=== PATIENT | female | born 1975 | race African-American/Black ===

== ENCOUNTER 2022-11-15 10:42 | Inpatient (IN) | payer OTHER ==
[2022-11-15 11:11] VITALS: BMI 24.0
[2022-11-15] MEDS ORDERED: guaiFENesin 200 MG/10 ML 10 ML UNIT-DOSE CUPS PO PRN (13:54)
[2022-11-15] MEDS ORDERED: LOPERAMIDE HCL 2 MG CAPSULE PO PRN (13:54)
[2022-11-15] MEDS ORDERED: IBUPROFEN 400 MG TABLET (FP) PO PRN (13:54)
[2022-11-15] MEDS ORDERED: MAGNESIUM HYDROX 2400MG/30ML ORAL SUSPENSION 30 ML CUP PO PRN (13:54)
[2022-11-15] MEDS ORDERED: P-EPHED 60MG/TRIPROLIDI 2.5MG TABLET PO PRN (13:54)
[2022-11-15] MEDS ORDERED: POLYETHYLENE GLYCOL (HEALTHYLAX) 3350 17 GM PACKET PO PRN (13:54)
[2022-11-15] MEDS ORDERED: BENZOCAINE/MENTHOL (CHLORASEPTIC ) LOZENGE MM PRN (13:54)
[2022-11-15] MEDS ORDERED: MAG HYDROX/AL HYDROX/SIMETH 30 ML UNIT-DOSE CUP PO PRN (13:54)
[2022-11-15] MEDS ORDERED: NICOTINE POLACRILEX 2 MG GUM ONE (15:15)
[2022-11-16] MEDS: NICOTINE 7 MG/24 HOURS TOPICAL PATCH TD SCH ×2 (04:45→10:51)
[2022-11-16] MEDS: THIAMINE HCL 100 MG TABLET (FP) PO SCH ×2 (04:46→21:51)
[2022-11-16] MEDS: MELATONIN 5 MG TABLETS PO SCH ×2 (04:46→21:51)
[2022-11-16] MEDS: PRENATAL VITAMINS W/ FOLIC ACID TABLET (FP) PO SCH ×2 (04:46→10:51)
[2022-11-16] MEDS: NICOTINE 10 MG CARTRIDGE (INHALER) IH PRN ×2 (06:51→22:17)
[2022-11-16 07:37] VITALS: RESP 18
[2022-11-16] MEDS ORDERED: COLLOIDAL OATMEAL 1 BAR EACH TP PRN (08:56)
[2022-11-16] MEDS ORDERED: LIDOCAINE HCL 5% TOP OINTMENT 50 GM TUBE TP ONE (09:07)
[2022-11-16 10:24] LABS: HEMATOCRIT 34.9 % (32.4-45.2); HEMOGLOBIN 11.2 GM/dL (10.7-15.3); MCH 26.3 pg (25.7-33.7); MCHC 32.1 g/dl (32.0-36.0); MEAN PLT VOLUME 9.6 fl (7.5-11.1); PLATELET COUNT 263 10^3/uL (134-434); RBC 4.26 M/mm3 (3.60-5.2); RDW 15.2 % (11.6-15.6); WHITE BLOOD COUNT 4.9 K/mm3 (4.0-10.0)
[2022-11-16] MEDS: hydrOXYzine PAMOATE 25 MG CAPSULE (FP) PO PRN (10:51)
[2022-11-16] MEDS: SELENIUM SULFIDE 2.5% LOTION 4 OZ. TP SCH (10:55)
[2022-11-16] MEDS: VITAMINS A AND D TOPICAL OINTMENT 60 GM TUBE TP SCH ×2 (11:09→17:52)
[2022-11-16 11:16] LABS: ALBUMIN 3.3 g/dl (3.4-5.0); BLOOD UREA NITROGEN 18.4 mg/dL (7-18)
[2022-11-16 11:17] LABS: CALCIUM 8.6 mg/dL (8.5-10.1)
[2022-11-16 11:19] LABS: CREATININE 0.6 mg/dL (0.55-1.3)
[2022-11-16 11:20] LABS: TOT PROT 6.2 g/dl (6.4-8.2)
[2022-11-16 11:23] LABS: BILIRUBIN,TOTAL 0.4 mg/dL (0.2-1)
[2022-11-16 11:36] LABS: SYPHILIS W/ RPR CONF NON-REACTIVE (NONREACTIVE)
[2022-11-16] MEDS: ACETAMINOPHEN 325 MG TABLET (FP) PO PRN (18:09)
[2022-11-16] MEDS: NICOTINE POLACRILEX 2 MG GUM BUC PRN (21:52)
[2022-11-17] MEDS: VITAMINS A AND D TOPICAL OINTMENT 60 GM TUBE TP SCH ×4 (00:40→17:11)
[2022-11-17] MEDS: hydrOXYzine PAMOATE 25 MG CAPSULE (FP) PO PRN ×3 (08:56→21:53)
[2022-11-17] MEDS: SELENIUM SULFIDE 2.5% LOTION 4 OZ. TP SCH (10:03)
[2022-11-17] MEDS: PRENATAL VITAMINS W/ FOLIC ACID TABLET (FP) PO SCH (10:03)
[2022-11-17] MEDS: NICOTINE 7 MG/24 HOURS TOPICAL PATCH TD SCH (10:03)
[2022-11-17] MEDS: NICOTINE POLACRILEX 2 MG GUM BUC PRN ×2 (10:05→17:11)
[2022-11-17] MEDS ORDERED: BACLOFEN 10 MG TABLET (FP) PO PRN (15:02)
[2022-11-17] MEDS: THIAMINE HCL 100 MG TABLET (FP) PO SCH (21:53)
[2022-11-17] MEDS: MELATONIN 5 MG TABLETS PO SCH (21:53)
[2022-11-18] MEDS: VITAMINS A AND D TOPICAL OINTMENT 60 GM TUBE TP SCH ×2 (00:22→06:42)
[2022-11-18] MEDS: ACETAMINOPHEN 325 MG TABLET (FP) PO PRN (07:23)
[2022-11-18 07:35] VITALS: BP 108/60; PULSE 63; TEMP 97.8
[2022-11-18] MEDS: NICOTINE 7 MG/24 HOURS TOPICAL PATCH TD SCH (09:24)
[2022-11-18] MEDS: PRENATAL VITAMINS W/ FOLIC ACID TABLET (FP) PO SCH (09:24)
[2022-11-18] MEDS: SELENIUM SULFIDE 2.5% LOTION 4 OZ. TP SCH (09:25)
[2022-11-18] MEDS: hydrOXYzine PAMOATE 25 MG CAPSULE (FP) PO PRN (09:26)
[2022-11-18] MEDS: NICOTINE POLACRILEX 2 MG GUM BUC PRN (09:27)
== END 2022-11-18 10:00 | disposition left against medical advice (07) | DRG 770 ==
LOC: YASAS 10:42 → Y5N 19:42
PROVIDERS: ADMIT Allergy & Immunology; ATTEND Allergy & Immunology
PROC: HZ42ZZZ Group Counseling for Substance Abuse Treatment, Cognitive-Behavioral (ICD-10-PCS; principal; 2022-11-15)
DX: F10.20 Alcohol dependence, uncomplicated (principal); F14.20 Cocaine dependence, uncomplicated; F17.210 Nicotine dependence, cigarettes, uncomplicated; F19.24 Other psychoactive substance dependence with psychoactive substance-induced mood disorder; F43.10 Post-traumatic stress disorder, unspecified; F41.9 Anxiety disorder, unspecified; G47.00 Insomnia, unspecified; M06.9 Rheumatoid arthritis, unspecified; Z91.410 Personal history of adult physical and sexual abuse; Z85.6 Personal history of leukemia; F91.8 Other conduct disorders; Z91.199 Patient's noncompliance with other medical treatment and regimen due to unspecified reason
CPT/HCPCS: 36415; 80053; 81025; 85027; 86780; 86803; C9803-CS; J0475; U0003; U0005

== ENCOUNTER 2023-12-19 22:51 | Emergency (ER) | payer OTHER ==
[2023-12-19 23:15] VITALS: BMI 58.6
[2023-12-20] MEDS ORDERED: ACETAMINOPHEN INJECTION 100 ML IVPB ONE (00:06)
[2023-12-20] MEDS: SODIUM CHLORIDE 0.9% 500 ML INFUS.BAG IV ONE ×2 (00:18→02:31)
[2023-12-20] MEDS: ACETAMINOPHEN 1000 MG/100 ML BAG IVPB ONE (00:18)
[2023-12-20 00:21] LABS: BASO % 0.8 % (0-2.0); EOS % 3.6 % (0-4.5); HEMATOCRIT 34.9 % (32.4-45.2); HEMOGLOBIN 11.6 GM/dL (10.7-15.3); LYMPH % 37.4 % (8-40); MCH 27.1 pg (25.7-33.7); MCHC 33.2 g/dl (32.0-36.0); MEAN CELL VOLUME 81.6 fl (80-96); MEAN PLT VOLUME 9.6 fl (7.5-11.1); MONO % 5.5 % (3.8-10.2); NEUT % 52.7 % (42.8-82.8); PLATELET COUNT 233 10^3/uL (134-434); RBC 4.28 M/mm3 (3.60-5.2); RDW 13.9 % (11.6-15.6); WHITE BLOOD COUNT 5.9 K/mm3 (4.0-10.0)
[2023-12-20 00:41] LABS: POTASSIUM 3.8 mmol/L (3.5-5.1)
[2023-12-20 00:44] LABS: ALBUMIN 3.2 g/dl (3.4-5.0); BLOOD UREA NITROGEN 17.1 mg/dL (7-18)
[2023-12-20 00:47] LABS: CREATININE 0.6 mg/dL (0.55-1.3)
[2023-12-20 00:48] LABS: BILIRUBIN,TOTAL 0.2 mg/dL (0.2-1); TOT PROT 6.3 g/dl (6.4-8.2)
[2023-12-20] MEDS ORDERED: FAMOTIDINE 10 MG/ML VIAL IVPB ONE (02:22)
[2023-12-20] MEDS: FAMOTIDINE 20 MG/50 ML IVPB 20 MG/50 ML MG IVPB ONE (02:32)
[2023-12-20 09:13] VITALS: BP 135/81; PULSE 64; RESP 17; TEMP 97.4
[2023-12-20] MEDS ORDERED: KETOROLAC TROMETHAMINE 15 MG/ML VIAL ONE (09:51)
[2023-12-20] MEDS: KETOROLAC TROMETHAMINE 15 MG/ML VIAL IVPUSH ONE (09:57)
== END 2023-12-20 15:00 | disposition home or self-care (01) ==
LOC: JER 22:51
PROC: 3E033GC Introduction of Other Therapeutic Substance into Peripheral Vein, Percutaneous Approach (ICD-10-PCS; principal; 2023-12-20)
PROC: 3E033NZ Introduction of Analgesics, Hypnotics, Sedatives into Peripheral Vein, Percutaneous Approach (ICD-10-PCS; 2023-12-20)
PROC: 3E0333Z Introduction of Anti-inflammatory into Peripheral Vein, Percutaneous Approach (ICD-10-PCS; 2023-12-20)
DX: F10.99 Alcohol use, unspecified with unspecified alcohol-induced disorder (principal); F14.99 Cocaine use, unspecified with unspecified cocaine-induced disorder; R52 Pain, unspecified; R10.84 Generalized abdominal pain; Z20.822 Contact with and (suspected) exposure to COVID-19; Y90.9 Presence of alcohol in blood, level not specified
CPT/HCPCS: 0241U-QW; 36415; 74177-TC; 80053; 83735; 84703; 85025; 99285-25; J0131; Q9967

== ENCOUNTER 2024-01-02 19:08 | Inpatient (IN) | payer OTHER ==
[2024-01-02 19:39] VITALS: BMI 23.0
[2024-01-02] MEDS ORDERED: guaiFENesin 600 MG TABLET.ER (FP) PO PRN (21:27)
[2024-01-02] MEDS ORDERED: MAGNESIUM HYDROX 2400MG/30ML ORAL SUSPENSION 30 ML CUP PO PRN (21:27)
[2024-01-02] MEDS ORDERED: LOPERAMIDE HCL 2 MG CAPSULE PO PRN (21:27)
[2024-01-02] MEDS ORDERED: DICYCLOMINE HCL 10 MG CAPSULE PO PRN (21:27)
[2024-01-02] MEDS ORDERED: IBUPROFEN 400 MG TABLET (FP) PO PRN (21:27)
[2024-01-02] MEDS ORDERED: ONDANSETRON *ODT* 4 MG TABLET SL PRN (21:27)
[2024-01-02] MEDS ORDERED: POLYETHYLENE GLYCOL (HEALTHYLAX) 3350 17 GM PACKET PO PRN (21:27)
[2024-01-02] MEDS ORDERED: BENZOCAINE/MENTHOL (CHLORASEPTIC ) LOZENGE MM PRN (21:27)
[2024-01-02] MEDS ORDERED: BISMUTH SUBSALICYLATE 524 MG/30 ML PO PRN (21:27)
[2024-01-02] MEDS ORDERED: P-EPHED 60MG/TRIPROLIDI 2.5MG TABLET PO PRN (21:27)
[2024-01-02] MEDS ORDERED: BENZONATATE 200 MG CAPSULE PO PRN (21:27)
[2024-01-02] MEDS ORDERED: MELATONIN 5 MG TABLETS ONE (22:11)
[2024-01-02] MEDS ORDERED: METHOCARBAMOL 500 MG TABLET ONE (22:11)
[2024-01-02] MEDS: MELATONIN 5 MG TABLETS PO SCH (22:13)
[2024-01-02] MEDS: THIAMINE HCL 100 MG TABLET (FP) PO SCH (22:13)
[2024-01-02] MEDS: METHOCARBAMOL 500 MG TABLET PO PRN (22:13)
[2024-01-03] MEDS: IBUPROFEN 600 MG TABLET (FP) PO PRN (00:25)
[2024-01-03] MEDS: MAG HYDROX/AL HYDROX/SIMETH 30 ML UNIT-DOSE CUP PO PRN (00:25)
[2024-01-03] MEDS ORDERED: diazePAM 5 MG TABLET PO PRN (08:52)
[2024-01-03] MEDS: diazePAM 5 MG TABLET PO SCH (10:14)
[2024-01-03] MEDS: PRENATAL VITAMINS W/ FOLIC ACID TABLET (FP) PO SCH (10:14)
[2024-01-03] MEDS: NICOTINE POLACRILEX 2 MG LOZENGE BC PRN (11:37)
[2024-01-03 12:10] LABS: HEMATOCRIT 34.8 % (32.4-45.2); HEMOGLOBIN 11.1 GM/dL (10.7-15.3); MCH 26.2 pg (25.7-33.7); MEAN PLT VOLUME 9.8 fl (7.5-11.1); PLATELET COUNT 239 10^3/uL (134-434); RBC 4.24 M/mm3 (3.60-5.2); RDW 13.6 % (11.6-15.6); WHITE BLOOD COUNT 4.9 K/mm3 (4.0-10.0)
[2024-01-03 13:22] LABS: POTASSIUM 4.1 mmol/L (3.5-5.1)
[2024-01-03 13:42] LABS: ALBUMIN 2.9 g/dl (3.4-5.0); BILIRUBIN,TOTAL 0.3 mg/dL (0.2-1); CALCIUM 8.1 mg/dL (8.5-10.1); TOT PROT 5.9 g/dl (6.4-8.2)
[2024-01-03 13:43] LABS: BLOOD UREA NITROGEN 23.4 mg/dL (7-18)
[2024-01-03 13:44] LABS: CREATININE 0.8 mg/dL (0.55-1.3)
[2024-01-03] MEDS: traZODone HCL 50 MG TABLET (FP) PO SCH (22:19)
[2024-01-03] MEDS: NICOTINE POLACRILEX 2 MG GUM BUC PRN (22:20)
[2024-01-04] MEDS: ARIPiprazole 5 MG TABLET PO SCH (10:44)
[2024-01-04] MEDS: ESCITALOPRAM OXALATE 10 MG TABLET PO SCH (10:44)
[2024-01-05] MEDS: diazePAM 5 MG TABLET PO SCH (05:51)
[2024-01-05] MEDS: hydrOXYzine PAMOATE 25 MG CAPSULE (FP) PO PRN (05:56)
[2024-01-06] MEDS: diazePAM 5 MG TABLET PO SCH (06:30)
[2024-01-06] MEDS: ACETAMINOPHEN 325 MG TABLET (FP) PO PRN (09:14)
[2024-01-07] MEDS: diazePAM 5 MG TABLET PO ONE (05:59)
[2024-01-07 06:11] VITALS: PULSE 76; RESP 16; TEMP 97.6
[2024-01-07 07:11] VITALS: BP 103/63
== END 2024-01-07 09:20 | disposition home or self-care (01) | DRG 774 ==
LOC: YASAS 19:08 → Y3N 22:07
PROVIDERS: ADMIT Allergy & Immunology; ATTEND Surgery
PROC: HZ2ZZZZ Detoxification Services for Substance Abuse Treatment (ICD-10-PCS; principal; 2024-01-02)
DX: F10.230 Alcohol dependence with withdrawal, uncomplicated (principal); F14.20 Cocaine dependence, uncomplicated; F17.210 Nicotine dependence, cigarettes, uncomplicated; F19.24 Other psychoactive substance dependence with psychoactive substance-induced mood disorder; F43.10 Post-traumatic stress disorder, unspecified; F41.8 Other specified anxiety disorders; C95.91 Leukemia, unspecified, in remission; Z88.0 Allergy status to penicillin; Z88.8 Allergy status to other drugs, medicaments and biological substances
CPT/HCPCS: 36415; 80053; 80305; 80307; 81025; 85027; 86780; 93005; 93010

== ENCOUNTER 2024-05-07 16:39 | Inpatient (IN) | payer OTHER ==
[2024-05-07 17:51] VITALS: BMI 27.4
[2024-05-07] MEDS ORDERED: ONDANSETRON *ODT* 4 MG TABLET SL PRN (20:34)
[2024-05-07] MEDS ORDERED: BENZOCAINE/MENTHOL (CHLORASEPTIC ) LOZENGE MM PRN (20:34)
[2024-05-07] MEDS ORDERED: BISMUTH SUBSALICYLATE 524 MG/30 ML PO PRN (20:34)
[2024-05-07] MEDS ORDERED: POLYETHYLENE GLYCOL (HEALTHYLAX) 3350 17 GM PACKET PO PRN (20:34)
[2024-05-07] MEDS ORDERED: BENZONATATE 200 MG CAPSULE PO PRN (20:34)
[2024-05-07] MEDS ORDERED: LOPERAMIDE HCL 2 MG CAPSULE PO PRN (20:34)
[2024-05-07] MEDS ORDERED: P-EPHED 60MG/TRIPROLIDI 2.5MG TABLET PO PRN (20:34)
[2024-05-07] MEDS ORDERED: DICYCLOMINE HCL 10 MG CAPSULE PO PRN (20:34)
[2024-05-07] MEDS ORDERED: MAG HYDROX/AL HYDROX/SIMETH 30 ML UNIT-DOSE CUP PO PRN (20:34)
[2024-05-07] MEDS ORDERED: IBUPROFEN 400 MG TABLET (FP) PO PRN (20:34)
[2024-05-07] MEDS ORDERED: guaiFENesin 600 MG TABLET.ER (FP) PO PRN (20:34)
[2024-05-07] MEDS ORDERED: MAGNESIUM HYDROX 2400MG/30ML ORAL SUSPENSION 30 ML CUP PO PRN (20:34)
[2024-05-07] MEDS: hydrOXYzine PAMOATE 25 MG CAPSULE (FP) PO PRN (21:55)
[2024-05-07] MEDS: THIAMINE 100 MG TABLET PO SCH (21:55)
[2024-05-07] MEDS: METHOCARBAMOL 500 MG TABLET PO PRN (21:55)
[2024-05-07] MEDS: MELATONIN 5 MG TABLETS PO SCH (21:56)
[2024-05-07] MEDS: IBUPROFEN 600 MG TABLET (FP) PO PRN (21:56)
[2024-05-08] MEDS: ACETAMINOPHEN 325 MG TABLET (FP) PO PRN (00:28)
[2024-05-08] MEDS: NICOTINE POLACRILEX 2 MG GUM BUC PRN (03:01)
[2024-05-08] MEDS: PRENATAL VITAMINS W/ FOLIC ACID TABLET (FP) PO SCH (09:52)
[2024-05-08] MEDS ORDERED: diazePAM 5 MG TABLET PO PRN (10:23)
[2024-05-08] MEDS: diazePAM 5 MG TABLET PO SCH (11:05)
[2024-05-08] MEDS: NICOTINE POLACRILEX 2 MG LOZENGE BC PRN (14:34)
[2024-05-08] MEDS: traZODone HCL 50 MG TABLET (FP) PO SCH (22:26)
[2024-05-10] MEDS: diazePAM 5 MG TABLET PO SCH (06:45)
[2024-05-10 18:06] VITALS: BP 134/75; PULSE 88; RESP 20; TEMP 98
[2024-05-11] MEDS ORDERED: diazePAM 5 MG TABLET PO SCH (06:00)
[2024-05-12] MEDS ORDERED: diazePAM 5 MG TABLET PO ONE (06:00)
== END 2024-05-10 18:48 | disposition left against medical advice (07) | DRG 770 ==
LOC: YASAS 16:39 → Y3N 21:16
PROVIDERS: ADMIT Allergy & Immunology; ATTEND Surgery
PROC: HZ2ZZZZ Detoxification Services for Substance Abuse Treatment (ICD-10-PCS; principal; 2024-05-07)
DX: F10.230 Alcohol dependence with withdrawal, uncomplicated (principal); F14.20 Cocaine dependence, uncomplicated; F17.210 Nicotine dependence, cigarettes, uncomplicated; F43.10 Post-traumatic stress disorder, unspecified; F19.94 Other psychoactive substance use, unspecified with psychoactive substance-induced mood disorder; M06.9 Rheumatoid arthritis, unspecified; J45.909 Unspecified asthma, uncomplicated; G47.00 Insomnia, unspecified; Z88.0 Allergy status to penicillin; Z88.8 Allergy status to other drugs, medicaments and biological substances; Z91.148 Patient's other noncompliance with medication regimen for other reason; Z85.6 Personal history of leukemia; Z56.0 Unemployment, unspecified; Z59.00 Homelessness unspecified
CPT/HCPCS: 80305; 80307; 81025

== ENCOUNTER 2024-06-14 12:32 | Emergency (ER) | payer OTHER ==
[2024-06-14 12:43] VITALS: BP 115/81; PULSE 86; RESP 18; TEMP 97.4; BMI 26.5
[2024-06-14] MEDS ORDERED: ALBUTEROL SO4 2.5/IPRATROPIUM 0.5 INH SOL 3 ML VIAL.NEB. NEB ONE (13:49)
[2024-06-14] MEDS: ALBUTEROL SO4 2.5/IPRATROPIUM 0.5 INH SOL 3 ML VIAL.NEB. NEB ONE (14:00)
== END 2024-06-14 15:42 | disposition left against medical advice (07) ==
LOC: JER 12:32
PROC: 3E0F7GC Introduction of Other Therapeutic Substance into Respiratory Tract, Via Natural or Artificial Opening (ICD-10-PCS; principal; 2024-06-14)
DX: F10.120 Alcohol abuse with intoxication, uncomplicated (principal); Z20.822 Contact with and (suspected) exposure to COVID-19; Y90.9 Presence of alcohol in blood, level not specified
CPT/HCPCS: 0241U-QW; 99283-25

== ENCOUNTER 2024-07-03 02:57 | Emergency (ER) | payer OTHER ==
[2024-07-03 03:18] VITALS: TEMP 97.4; BMI 24.7
[2024-07-03] MEDS ORDERED: ACETAMINOPHEN INJECTION 100 ML ONE (03:43)
[2024-07-03] MEDS ORDERED: METOCLOPRAMIDE HCL INJECTION 10 MG/2 ML VIAL ONE (03:43)
[2024-07-03] MEDS: METOCLOPRAMIDE HCL INJECTION 10 MG/2 ML VIAL IVPUSH ONE (03:49)
[2024-07-03] MEDS: SODIUM CHLORIDE 0.9% 500 ML INFUS.BAG IV ONE (03:49)
[2024-07-03] MEDS: ACETAMINOPHEN 1000 MG/100 ML BAG IVPB ONE (03:49)
[2024-07-03 03:50] LABS: HEMATOCRIT 37.1 % (32.4-45.2)
[2024-07-03 04:02] LABS: INR 0.95 (0.83-1.09); PROTHROMBIN TIME (PATIENT) 10.8 SEC (9.7-13.0)
[2024-07-03 04:10] LABS: ALBUMIN 3.6 g/dl (3.4-5.0); BLOOD UREA NITROGEN 12.1 mg/dL (7-18); MAGNESIUM 2.4 mg/dL (1.8-2.4)
[2024-07-03 04:13] LABS: CREATININE 0.7 mg/dL (0.55-1.3); EOS % 2.3 % (0-4.5); LYMPH % 43.1 % (8-40); MCHC 32.2 g/dl (32.0-36.0); MEAN CELL VOLUME 80.8 fl (80-96); MEAN PLT VOLUME 9.1 fl (7.5-11.1); MONO % 6.4 % (3.8-10.2); NEUT % 47.2 % (42.8-82.8); PLATELET COUNT 257 10^3/uL (134-434); RBC 4.59 M/mm3 (3.60-5.2); RDW 14.5 % (11.6-15.6); WHITE BLOOD COUNT 4.5 K/mm3 (4.0-10.0)
[2024-07-03 04:14] LABS: BILIRUBIN,TOTAL 0.6 mg/dL (0.2-1)
[2024-07-03] MEDS ORDERED: DEXAMETHASONE SOD PHOSPHATE 10 MG/1 ML VIAL ONE (04:31)
[2024-07-03] MEDS: DEXAMETHASONE SOD PHOSPHATE 10 MG/1 ML VIAL PO ONE (04:43)
[2024-07-03] MEDS: ALBUTEROL SO4 2.5/IPRATROPIUM 0.5 INH SOL 3 ML VIAL.NEB. NEB SCH (04:43)
[2024-07-03] MEDS ORDERED: KETOROLAC TROMETHAMINE 15 MG/ML VIAL ONE (04:46)
[2024-07-03] MEDS ORDERED: ALBUTEROL SO4 2.5/IPRATROPIUM 0.5 INH SOL 3 ML VIAL.NEB. NEB ONE (04:49)
[2024-07-03] MEDS: KETOROLAC TROMETHAMINE 15 MG/ML VIAL IVPUSH ONE (04:49)
[2024-07-03 06:42] VITALS: BP 121/77; PULSE 79; RESP 16
== END 2024-07-03 11:14 | disposition home or self-care (01) ==
LOC: JER 02:57
PROC: 3E033NZ Introduction of Analgesics, Hypnotics, Sedatives into Peripheral Vein, Percutaneous Approach (ICD-10-PCS; principal; 2024-07-03)
PROC: 3E0333Z Introduction of Anti-inflammatory into Peripheral Vein, Percutaneous Approach (ICD-10-PCS; 2024-07-03)
PROC: 3E033GC Introduction of Other Therapeutic Substance into Peripheral Vein, Percutaneous Approach (ICD-10-PCS; 2024-07-03)
PROC: 3E0F7GC Introduction of Other Therapeutic Substance into Respiratory Tract, Via Natural or Artificial Opening (ICD-10-PCS; 2024-07-03)
DX: R07.89 Other chest pain (principal); R06.2 Wheezing; Z20.822 Contact with and (suspected) exposure to COVID-19
CPT/HCPCS: 0241U-QW; 36415; 71045-TC-FY; 80053; 83735; 84484; 85025; 85610; 85730; 93005; 93010; 99285-25; J0131; J1100

== ENCOUNTER 2024-07-17 21:22 | Inpatient (IN) | payer OTHER ==
[2024-07-17] MEDS ORDERED: IBUPROFEN 400 MG TABLET (FP) PO PRN (22:55)
[2024-07-17] MEDS ORDERED: BENZONATATE 200 MG CAPSULE PO PRN (22:55)
[2024-07-17] MEDS ORDERED: MAGNESIUM HYDROX 2400MG/30ML ORAL SUSPENSION 30 ML CUP PO PRN (22:55)
[2024-07-17] MEDS ORDERED: DICYCLOMINE HCL 10 MG CAPSULE PO PRN (22:55)
[2024-07-17] MEDS ORDERED: NICOTINE POLACRILEX 2 MG GUM BUC PRN (22:55)
[2024-07-17] MEDS ORDERED: BISMUTH SUBSALICYLATE 524 MG/30 ML PO PRN (22:55)
[2024-07-17] MEDS ORDERED: POLYETHYLENE GLYCOL (HEALTHYLAX) 3350 17 GM PACKET PO PRN (22:55)
[2024-07-17] MEDS ORDERED: BENZOCAINE/MENTHOL (CHLORASEPTIC ) LOZENGE MM PRN (22:55)
[2024-07-17] MEDS ORDERED: guaiFENesin 600 MG TABLET.ER (FP) PO PRN (22:55)
[2024-07-17] MEDS ORDERED: NICOTINE POLACRILEX 2 MG LOZENGE BC PRN (22:55)
[2024-07-17] MEDS ORDERED: ACETAMINOPHEN 325 MG TABLET (FP) PO PRN (22:55)
[2024-07-17 23:23] VITALS: BMI 26.5
[2024-07-18] MEDS ORDERED: ALBUTEROL SO4 HFA INHALER IH PRN (09:47)
[2024-07-18] MEDS ORDERED: diazePAM 5 MG TABLET ONE (10:19)
[2024-07-18] MEDS ORDERED: IBUPROFEN 600 MG TABLET (FP) PO ONE (10:20)
[2024-07-18] MEDS ORDERED: PRENATAL VITAMINS W/ FOLIC ACID TABLET (FP) PO ONE (10:20)
[2024-07-18] MEDS: PRENATAL VITAMINS W/ FOLIC ACID TABLET (FP) PO SCH (10:25)
[2024-07-18] MEDS: diazePAM 5 MG TABLET PO SCH (10:25)
[2024-07-18] MEDS: IBUPROFEN 600 MG TABLET (FP) PO PRN (10:27)
[2024-07-18] MEDS ORDERED: GABAPENTIN 100 MG CAPSULE ONE (11:09)
[2024-07-18] MEDS: GABAPENTIN 100 MG CAPSULE PO SCH (11:11)
[2024-07-18 12:28] LABS: HEMATOCRIT 34.8 % (32.4-45.2); HEMOGLOBIN 11.1 GM/dL (10.7-15.3); MCHC 31.9 g/dl (32.0-36.0); MEAN CELL VOLUME 81.5 fl (80-96); MEAN PLT VOLUME 9.4 fl (7.5-11.1); PLATELET COUNT 255 10^3/uL (134-434); RBC 4.26 M/mm3 (3.60-5.2); RDW 14.2 % (11.6-15.6)
[2024-07-18] MEDS: BACITRACIN ZINC 15 GM TUBE TOPICAL OINTMENT TP SCH (12:29)
[2024-07-18 13:34] LABS: CHLORIDE 112 mmol/L (98-107); POTASSIUM 3.9 mmol/L (3.5-5.1); SODIUM 145 mmol/L (136-145)
[2024-07-18 13:41] LABS: CALCIUM 8.6 mg/dL (8.5-10.1)
[2024-07-18 13:42] LABS: ALBUMIN 3.1 g/dl (3.4-5.0); ANION GAP 6 mmol/L (4-13); BLOOD UREA NITROGEN 15.3 mg/dL (7-18); CO2 28 mmol/L (21-32)
[2024-07-18 13:43] LABS: GLUCOSE,RANDOM 112 mg/dL (74-106)
[2024-07-18 13:45] LABS: CREATININE 0.8 mg/dL (0.55-1.3); SGOT/AST 16 U/L (15-37); SGPT/ALT 18 U/L (13-61)
[2024-07-18 13:47] LABS: ALK PHOS 81 U/L (45-117); BILIRUBIN,TOTAL 0.3 mg/dL (0.2-1)
[2024-07-18] MEDS: MELATONIN 5 MG TABLETS PO SCH (22:50)
[2024-07-18] MEDS: THIAMINE 100 MG TABLET PO SCH (22:50)
[2024-07-18] MEDS: METHOCARBAMOL 500 MG TABLET PO PRN (22:50)
[2024-07-18] MEDS: MAG HYDROX/AL HYDROX/SIMETH 30 ML UNIT-DOSE CUP PO PRN (22:54)
[2024-07-19] MEDS: diazePAM 5 MG TABLET PO PRN (06:56)
[2024-07-19] MEDS: LOPERAMIDE HCL 2 MG CAPSULE PO PRN (10:23)
[2024-07-20] MEDS: hydrOXYzine PAMOATE 25 MG CAPSULE (FP) PO PRN (01:14)
[2024-07-20] MEDS: diazePAM 5 MG TABLET PO SCH (06:02)
[2024-07-20 13:26] VITALS: TEMP 98.9
[2024-07-20] MEDS: ONDANSETRON *ODT* 4 MG TABLET SL PRN (13:50)
[2024-07-20 18:28] VITALS: BP 134/83; PULSE 84; RESP 18
[2024-07-21] MEDS ORDERED: diazePAM 5 MG TABLET PO SCH (06:00)
[2024-07-22] MEDS ORDERED: diazePAM 5 MG TABLET PO ONE (06:00)
== END 2024-07-20 22:15 | disposition left against medical advice (07) | DRG 774 ==
LOC: YASAS 21:22 → Y6N 07-18 11:45
PROVIDERS: ADMIT Surgery; ATTEND Surgery
PROC: HZ2ZZZZ Detoxification Services for Substance Abuse Treatment (ICD-10-PCS; principal; 2024-07-18)
DX: F10.230 Alcohol dependence with withdrawal, uncomplicated (principal); F14.20 Cocaine dependence, uncomplicated; F17.210 Nicotine dependence, cigarettes, uncomplicated; F32.A Depression, unspecified; F41.9 Anxiety disorder, unspecified; G62.9 Polyneuropathy, unspecified; J45.909 Unspecified asthma, uncomplicated; C95.91 Leukemia, unspecified, in remission; F91.8 Other conduct disorders; Z91.199 Patient's noncompliance with other medical treatment and regimen due to unspecified reason; Z59.02 Unsheltered homelessness; Z88.0 Allergy status to penicillin; Z88.8 Allergy status to other drugs, medicaments and biological substances
CPT/HCPCS: 36415; 80053; 80305; 80307; 81025; 85027; 93005; 93010; Q0162